=== PATIENT | male | born 1965 | race African-American/Black ===

== ENCOUNTER → 2019-09-12 | Emergency (ER) | payer MEDICAID ==
[~2019-09-12] VITALS: Ht 177.8 cm; Wt 104.3 kg
[~2019-09-12] MED LIST: AMIO200T33 PO; AMLO5TAB15 PO; ASPI-231 PO; ATOR40TA52 PO; CARV12.544 PO; HYDR50TA15 PO; LISI-646 PO; ONDA-144 PO
[2019-09-12 10:47] LABS: Basophils # (auto) 0.1 10 ^3/uL (0-0.2); Basophils % (auto) 0.9 % (0.0-2.0); Eosinophils # (auto) 0.1 10 ^3/uL (0-0.8); Eosinophils % (auto) 1.4 % (0.0-7.0); Hematocrit 33.4 % (41.0-53.0); Lymphocytes # (auto) 0.8 10 ^3/uL (0.4-5.4); Lymphocytes % (auto) 8.7 % (10.0-50.0); Mean Corpuscular Hemoglobin 29.2 pg (28.0-32.0); Mean Corpuscular Hgb Conc. 32.9 g/dL (32.0-36.0); Mean Corpuscular Volume 88.9 fL (80.0-100.0); Monocytes % (auto) 11.2 % (0.0-12.0); Neutrophils # (auto) 7.1 10 ^3/uL (1.6-8.6); Neutrophils % (auto) 77.8 % (37.0-80.0); Platelet Count (auto) 199 10^3/uL (140-450); Red Blood Cells 3.76 10^6/uL (4.5-5.90); Red Cell Distribution Width 15.5 % (11.8-14.3); White Blood Cell 9.2 10^3/uL (4.4-10.8)
[2019-09-12 11:04] LABS: Albumin 3.9 g/dL (3.4-5.0); Calcium 9.6 mg/dL (8.5-10.1); Potassium 4.2 mmol/L (3.5-5.1)
[2019-09-12 11:10] LABS: BUN/Creatinine Ratio 4.2; Bilirubin, Total 0.9 mg/dL (0.2-1.0); Total Protein 9.3 g/dL (6.4-8.2)
[2019-09-12 14:00] VITALS: BP 131/72
== END | disposition home or self-care (01) ==
LOC: EDUNIT# 09:59 → EDBD 10:12 → ER 10:12
DX: I13.2 Hypertensive heart and chronic kidney disease with heart failure and with stage 5 chronic kidney disease, or end stage renal disease (principal); E11.22 Type 2 diabetes mellitus with diabetic chronic kidney disease; N18.6 End stage renal disease; I50.9 Heart failure, unspecified; Z99.2 Dependence on renal dialysis; E78.5 Hyperlipidemia, unspecified; Z98.61 Coronary angioplasty status
CPT/HCPCS: 36415; 70450; 71045; 80053; 84484; 85025; 93005

== ENCOUNTER 2019-09-14 18:20 | Inpatient (IN) | payer MEDICAID ==
[~2019-09-14] VITALS: Ht 177.8 cm; Wt 100.6 kg
[~2019-09-14 18:20] MED LIST changes: -AMIO200T33 PO; -ONDA-144 PO
[2019-09-14] MEDS ORDERED: ASPirin 81 mg TAB PO ONE (19:45)
[2019-09-14 20:44] LABS: Basophils # (auto) 0.1 10 ^3/uL (0-0.2); Eosinophils # (auto) 0.2 10 ^3/uL (0-0.8); Eosinophils % (auto) 2.3 % (0.0-7.0); Hematocrit 31.5 % (41.0-53.0); Hemoglobin 10.8 g/dL (13.5-17.5); Lymphocytes # (auto) 1.3 10 ^3/uL (0.4-5.4); Mean Corpuscular Hemoglobin 30.3 pg (28.0-32.0); Mean Corpuscular Hgb Conc. 34.1 g/dL (32.0-36.0); Mean Corpuscular Volume 88.6 fL (80.0-100.0); Monocytes % (auto) 10.8 % (0.0-12.0); Neutrophils # (auto) 6.6 10 ^3/uL (1.6-8.6); Neutrophils % (auto) 71.9 % (37.0-80.0); Platelet Count (auto) 202 10^3/uL (140-450); Red Blood Cells 3.55 10^6/uL (4.5-5.90); Red Cell Distribution Width 15.5 % (11.8-14.3); White Blood Cell 9.2 10^3/uL (4.4-10.8)
[2019-09-14 21:00] LABS: INR 1.12 (0.9-1.15); Partial Thromboplastin Time 27.6 sec (23.64-32.05)
[2019-09-14 21:03] LABS: Potassium 5.1 mmol/L (3.5-5.1)
[2019-09-14 21:13] LABS: Albumin 3.9 g/dL (3.4-5.0); BUN/Creatinine Ratio 6.9; Bilirubin, Total 0.6 mg/dL (0.2-1.0); Calcium 9.6 mg/dL (8.5-10.1); Magnesium 2.3 mg/dL (1.6-2.6); Total Protein 8.9 g/dL (6.4-8.2)
[2019-09-14] MEDS ORDERED: ACETAMINOPHEN 325 MG TAB PO PRN (23:45)
[2019-09-14] MEDS ORDERED: HYDROcodone-ACET 5/325MG TAB PO PRN (23:45)
[2019-09-14] MEDS ORDERED: NITROGLYCERIN 0.4 MG SL TAB SL PRN (23:45)
[2019-09-14] MEDS ORDERED: DEXTROSE (50%) 50ML SYRG IV PRN (23:45)
[2019-09-14] MEDS ORDERED: ONDANSETRON HCL 4 MG/2 ML VIAL IV PRN (23:45)
[2019-09-14] MEDS ORDERED: DOCUSATE SOD 100 MG CAP PO PRN (23:45)
[2019-09-14] MEDS ORDERED: MORPHINE SULFATE 4 MG/ML SYR/VIAL IV PRN (23:45)
[2019-09-14] MEDS ORDERED: MORPHINE SULF INJ 2 MG/ML SYRINGE 1ML IV PRN (23:45)
[2019-09-15] VITALS (9 sets, daily range): BP systolic 114–142; BP diastolic 56–82
[2019-09-15] MEDS: ACCU-CHEK COMFORT CURVE STRIP VI SCH ×6 (00:10→20:00)
--- NOTE | 2019-09-15 02:30 | NUR ---
Patient admitted to room 284A. Alert and oriented x4. States he is homeless. Prescription meds at bedside. Will take to pharmacy when they open. Mrsa swab nares obtained and sending to lab. Patient was discharged a couple weeks ago. New port a cath to [facility]. Patients last dialysis was on Sunday. States he couldnt get a ride. IV to R AC patent and saline locked. No c/o pain. Having trouble with his left arm. Is unable to use it very much. Not sure why. Wearing Life vest . Snack given. Patient is very short with his answers to any questions. Wants to be left alone to rest. Went over POC. Oriented to room. Continuing to monitor.
[2019-09-15] MEDS: InsuLIN REG 1unit/0.01ml Soln (100units/ml) SC SCH ×6 (04:00→21:11)
[2019-09-15] MEDS ORDERED: ONDA-144 PO (04:54)
[2019-09-15] MEDS ORDERED: AMIO200T33 PO (04:54)
[2019-09-15] MEDS: hydrALAZINE HCL 25 MG TAB PO SCH ×3 (06:00→21:13)
[2019-09-15 06:08] LABS: Basophils # (auto) 0.1 10 ^3/uL (0-0.2); Basophils % (auto) 1.2 % (0.0-2.0); Eosinophils # (auto) 0.3 10 ^3/uL (0-0.8); Eosinophils % (auto) 3.5 % (0.0-7.0); Hematocrit 30.5 % (41.0-53.0); Hemoglobin 10.2 g/dL (13.5-17.5); Lymphocytes # (auto) 1.4 10 ^3/uL (0.4-5.4); Lymphocytes % (auto) 18.7 % (10.0-50.0); Mean Corpuscular Hemoglobin 29.9 pg (28.0-32.0); Mean Corpuscular Hgb Conc. 33.6 g/dL (32.0-36.0); Mean Corpuscular Volume 89.1 fL (80.0-100.0); Monocytes % (auto) 13.2 % (0.0-12.0); Neutrophils # (auto) 4.6 10 ^3/uL (1.6-8.6); Neutrophils % (auto) 63.4 % (37.0-80.0); Platelet Count (auto) 182 10^3/uL (140-450); Red Blood Cells 3.42 10^6/uL (4.5-5.90); Red Cell Distribution Width 15.2 % (11.8-14.3); White Blood Cell 7.3 10^3/uL (4.4-10.8)
[2019-09-15 08:29] LABS: BUN/Creatinine Ratio 7.7; Calcium 9.5 mg/dL (8.5-10.1); Potassium 4.8 mmol/L (3.5-5.1)
[2019-09-15] MEDS ORDERED: ADENOSINE 84 MG in GIVE UN-DILUTED 0 ML IV STA (09:00)
--- NOTE | 2019-09-15 09:29 | NUR ---
HOSPITAL LIST PAIGED TO REPORT CRITICAL VALUES OF BUN 88 AND CREATININE 11.4. WAITING FOR CALL BACK.
[2019-09-15] MEDS: CARVEDILOL 12.5 MG TAB PO SCH ×2 (09:45→21:12)
[2019-09-15] MEDS: ASPirin-EC 81 mg tab PO SCH (09:46)
[2019-09-15] MEDS: FUROSEMIDE 20 MG TAB PO SCH ×2 (09:47→21:11)
[2019-09-15] MEDS: ATORVASTATIN 20 MG TAB PO SCH (09:48)
[2019-09-15] MEDS: amLODIPine BESYLATE 5 MG TAB PO SCH (09:48)
[2019-09-15] MEDS: PANTOPRAZOLE 40 MG TAB PO SCH (09:49)
[2019-09-15] MEDS: LISINOPRIL 20 MG TAB PO SCH ×2 (09:49→21:12)
[2019-09-15] MEDS: HEPARIN SODIUM (PORCINE) 5000 UNITS/ML 1ML VIAL SC SCH ×2 (09:51→21:09)
--- NOTE | 2019-09-15 10:59 | NUR ---
CRITICAL VALUES REPORTED TO DR STORY. HE INFORMED ME TO MAKE SURE THAT [facility] WAS CONSULTED
--- NOTE | 2019-09-15 19:20 | NUR ---
NEPHRO AT BEDSIDE DR CUELLAR AT BEDSIDE, DISCUSSING POC WITH PT, STATES PT WILL BE SCHEDULED FOR DIALYSIS TX TOMORROW, [facility]
--- NOTE | 2019-09-15 19:30 | NUR ---
Opening Shift Note Assumed care of patient, awake and alert and oriented x4. No S/S of distress/SOB or pain reported at this time, currently on room air, left side weakness related to hx of CVA per patient, pt able to stand next to bed to use urinal, no assistance needed, fall precautions in place, non-slip socks on, Instructed on POC and to call for assist PRN, call light within reach, Nemesio dialysis cath noted to right upper chest wall, site benign, will continue to monitor for changes Q1hr and PRN.
--- NOTE | 2019-09-15 19:35 | NUR ---
ZOLL LIFE VEST ON PT BROUGHT FROM HOME, PT AXOX4, ABLE TO DEMONSTRATE AND VERBALIZE COMPLETE COMPREHENSION ON DEVICE, AWARE, CONT CARE
[2019-09-16] VITALS (8 sets, daily range): BP systolic 122–138; BP diastolic 66–79
[2019-09-16] MEDS: ACCU-CHEK COMFORT CURVE STRIP VI SCH ×6 (00:03→20:00)
[2019-09-16] MEDS: InsuLIN REG 1unit/0.01ml Soln (100units/ml) SC SCH ×6 (03:59→20:00)
[2019-09-16 05:43] LABS: Basophils # (auto) 0.1 10 ^3/uL (0-0.2); Basophils % (auto) 1.1 % (0.0-2.0); Eosinophils # (auto) 0.2 10 ^3/uL (0-0.8); Eosinophils % (auto) 2.9 % (0.0-7.0); Hematocrit 32.1 % (41.0-53.0); Hemoglobin 10.8 g/dL (13.5-17.5); Lymphocytes # (auto) 1.3 10 ^3/uL (0.4-5.4); Lymphocytes % (auto) 16.9 % (10.0-50.0); Mean Corpuscular Hemoglobin 29.7 pg (28.0-32.0); Mean Corpuscular Hgb Conc. 33.7 g/dL (32.0-36.0); Monocytes # (auto) 0.8 10 ^3/uL (0-1.3); Monocytes % (auto) 10.3 % (0.0-12.0); Neutrophils # (auto) 5.3 10 ^3/uL (1.6-8.6); Neutrophils % (auto) 68.8 % (37.0-80.0); Platelet Count (auto) 199 10^3/uL (140-450); Red Blood Cells 3.65 10^6/uL (4.5-5.90); Red Cell Distribution Width 15.6 % (11.8-14.3); White Blood Cell 7.7 10^3/uL (4.4-10.8)
[2019-09-16] MEDS: hydrALAZINE HCL 25 MG TAB PO SCH ×3 (05:58→22:00)
--- NOTE | 2019-09-16 05:59 | NUR ---
MEDICATION HELD SCHEDULED APRESOLINE HELD THIS AM. BLOOD PRESSURE WNL. HELD MED RELATED TO SCHEDULED DIALYSIS TODAY.
[2019-09-16 06:00] LABS: Calcium 9.3 mg/dL (8.5-10.1)
[2019-09-16 06:08] LABS: BUN/Creatinine Ratio 7.9
--- NOTE | 2019-09-16 06:11 | NUR ---
CRITICAL LAB RECEIVED REPORT FROM TORCH SOLDERER POTASSIUM 6.0, BUN 100, CREAT 12.6. PAGED PHOTOGRAPHIC DOUBLE DR. CUELLAR, SPOKE WITH ZEN AT [facility]. CURRENT TELE READING SINUS JUAN RAMON 55 BPM, WITH BBB AND OCCASIONAL PVC. PATIENT ASYMPTOTIC. WILL CONTINUE TO MONITOR AND AWAIT FOR PHYSICIAN TO CALL BACK.
[2019-09-16] MEDS ORDERED: SODIUM CHL 0.9% 1000 ML BAG XX ONE (07:00)
[2019-09-16] MEDS ORDERED: CALCIUM GLUC 4.65meq/50ml D5AE 50 ML IV ONE (09:30)
[2019-09-16] MEDS ORDERED: SODIUM ZIRCONIUM CYCL 10 GM PAK PO ONE (09:30)
[2019-09-16] MEDS: CARVEDILOL 12.5 MG TAB PO SCH ×2 (10:00→22:00)
[2019-09-16] MEDS: amLODIPine BESYLATE 5 MG TAB PO SCH (10:00)
[2019-09-16] MEDS: FUROSEMIDE 20 MG TAB PO SCH ×2 (10:00→22:00)
[2019-09-16] MEDS: ATORVASTATIN 20 MG TAB PO SCH (10:19)
[2019-09-16] MEDS: PANTOPRAZOLE 40 MG TAB PO SCH (10:19)
[2019-09-16] MEDS: ASPirin-EC 81 mg tab PO SCH (10:20)
[2019-09-16] MEDS: HEPARIN SODIUM (PORCINE) 5000 UNITS/ML 1ML VIAL SC SCH (10:20)
--- NOTE | 2019-09-16 15:57 | NUR ---
assessment Patient is a 54 year old male who is alert and oriented. Patients cognitive abilities are intact. Prior to admission patient lived home with a friend Aby and functioned independently. Patient informed me he is able to care for his own ADLs. Per patient he will not return home to his prior living arrangements post discharge. Patient has a rollator and life vest. Patient informed me he is trying to get to [place] on discharge. Patient is originally from [place] and moving to [facility]. Patient informed me he has no place to go on discharge if he cant get to [facility]. [facility] SW1 will evaluate for Homelessness. Other than that patient has no other discharge needs identified. I informed patient he has a right to speak to a geriatric social work professor regarding all care. I informed patient he has a right to participate in any and all discharge planning. Patient does not have a POA and advanced directive. I have offered patient information on POA and advanced directives. I informed the patient the advantages and benefits of having an Advanced Directive. Patient verbalized understanding and agreed to discharge plan. Addendum: 09/16/19 at 1605 by Dorene BENOIT Amended: Links added.
--- NOTE | 2019-09-16 16:14 | NUR ---
DR CUELLAR PAGED TO INFORM HIM THAT THE PATIENT IS SCHEDULED FOR A HEART CATH TOMORROW AND TO RECEIVE CLEARANCE FROM HIM TO CONTINUE. DR CUELLAR ANSWERED THE PAGE AND STATED THAT THE PATIENT WAS FINE TO RECEIVE THE HEART CATH FROM HIS STANDPOINT.
--- NOTE | 2019-09-16 19:35 | NUR ---
Opening Shift Note Assumed care of patient, awake and alert and oriented x4. No S/S of distress/SOB or pain reported at this time, currently on room air, left side weakness related to hx of CVA per patient, fall precautions in place, non-slip socks on, 2 side rails up, bed positioned low, bed alarm on and call light within reach, Instructed on POC and to call for assist PRN, Nemesio dialysis cath noted to right upper chest wall, site benign, zoll vest on, will continue to monitor for changes Q1hr and PRN.
[2019-09-16] MEDS ORDERED: EPOETIN ALFA 4,000 UNIT/ML VL SC ONE (21:00)
--- NOTE | 2019-09-16 21:03 | NUR ---
DIALYSIS NURSE AT BEDSIDE FOR TX HEPARIN [address]17 VIAL HANDED TO DIALYSIS NURSE FOR ADMINISTRATION ORDERED
--- NOTE | 2019-09-17 | NUR ---
DIALYSIS TX COMPLETE 1.9 LITERS REMOVED, VS 112/64, ON ROOM AIR, NO C/O CP, OR SOB, PT ASYMPTOMATIC, WILL RESUME WITH SCHEDULED MEDICATION TOLERATED, CONT CARE
--- NOTE | 2019-09-17 00:15 | NUR ---
ACTIVITY PT NOTED AMBULATING TO BATHROOM WITH ASSISTANCE OF FWW, PT TOLERATED ACTIVITY, NO S/O SOB, ASSISTED BACK TO BED, BED ALARM ACTIVATED AND CALL LIGHT WITHIN REACH, CONT CARE
[2019-09-17] MEDS: HEPARIN SODIUM (PORCINE) 5000 UNITS/ML 1ML VIAL SC SCH ×3 (01:29→22:17)
[2019-09-17] MEDS: InsuLIN REG 1unit/0.01ml Soln (100units/ml) SC SCH ×6 (04:00→20:36)
[2019-09-17] MEDS: ACCU-CHEK COMFORT CURVE STRIP VI SCH ×6 (04:25→20:25)
[2019-09-17] MEDS: hydrALAZINE HCL 25 MG TAB PO SCH ×3 (05:14→22:00)
[2019-09-17 05:18] VITALS: BP 124/80
[2019-09-17 05:25] LABS: Basophils # (auto) 0 10 ^3/uL (0-0.2); Basophils % (auto) 0.6 % (0.0-2.0); Eosinophils # (auto) 0.2 10 ^3/uL (0-0.8); Hematocrit 29.3 % (41.0-53.0); Hemoglobin 9.9 g/dL (13.5-17.5); Lymphocytes # (auto) 1.1 10 ^3/uL (0.4-5.4); Lymphocytes % (auto) 16.8 % (10.0-50.0); Mean Corpuscular Hgb Conc. 33.9 g/dL (32.0-36.0); Mean Corpuscular Volume 88.5 fL (80.0-100.0); Monocytes # (auto) 0.8 10 ^3/uL (0-1.3); Monocytes % (auto) 12.6 % (0.0-12.0); Neutrophils # (auto) 4.2 10 ^3/uL (1.6-8.6); Platelet Count (auto) 187 10^3/uL (140-450); Red Blood Cells 3.31 10^6/uL (4.5-5.90); Red Cell Distribution Width 15.4 % (11.8-14.3); White Blood Cell 6.3 10^3/uL (4.4-10.8)
[2019-09-17 05:36] LABS: INR 1.13 (0.9-1.15); Partial Thromboplastin Time 33.2 sec (23.64-32.05)
[2019-09-17 05:47] LABS: BUN/Creatinine Ratio 6.7; Calcium 8.7 mg/dL (8.5-10.1); Potassium 4.3 mmol/L (3.5-5.1)
[2019-09-17 08:00] VITALS: BP 125/78
[2019-09-17 08:13] VITALS: BP 125/78
[2019-09-17] MEDS: CARVEDILOL 12.5 MG TAB PO SCH ×2 (09:32→22:14)
[2019-09-17] MEDS: PANTOPRAZOLE 40 MG TAB PO SCH (09:33)
[2019-09-17] MEDS: ASPirin-EC 81 mg tab PO SCH (09:33)
[2019-09-17] MEDS: ATORVASTATIN 20 MG TAB PO SCH (09:33)
[2019-09-17] MEDS: FUROSEMIDE 20 MG TAB PO SCH ×2 (09:33→22:13)
[2019-09-17] MEDS: amLODIPine BESYLATE 5 MG TAB PO SCH (09:33)
[2019-09-17] MEDS ORDERED: IODIXANOL 320MG/ML 100ML BTL IV ONE ×2 (10:34→11:01)
[2019-09-17] MEDS ORDERED: LIDOCAINE 2%HCL (LOCAL ANESTH.) INJ 20ML MDV ONE (10:34)
[2019-09-17] MEDS: LISINOPRIL 20 MG TAB PO SCH ×2 (10:46→22:12)
[2019-09-17] MEDS ORDERED: fentaNYL CITRATE 100 MCG/2 ML VL ONE (10:52)
[2019-09-17] MEDS ORDERED: MIDAZOLAM HCL 1MG/1ML-2 ML VIAL ONE (10:52)
[2019-09-17] MEDS ORDERED: SODIUM CHL 0.9% 50 ML ONE (10:52)
[2019-09-17] MEDS ORDERED: ANGIOMAX 250 MG VIAL IV ONE (10:52)
[2019-09-17] MEDS ORDERED: VERAPAMIL 2.5MG/ML INJ 2ML VIAL IV ONE (10:54)
[2019-09-17] MEDS ORDERED: HEPARIN SODIUM (PORCINE) 5000 UNITS/ML 1ML VIAL ONE (10:54)
[2019-09-17] MEDS ORDERED: ASPirin 325 MG TAB ONE (12:36)
[2019-09-17] MEDS ORDERED: TICAGRELOR 90 MG TAB ONE (12:36)
--- NOTE | 2019-09-17 16:24 | NUR ---
Received Social Service Consult as Pt states he has been homeless for a couple of days. Pt has been staying with a friend but they had a falling out and he cannot go back.The pt states that he does have an income of around $800.00 a month but he is not sure. He does not know where the money is going. He lost his bank card, his ID and backpack. Pt states he wants to go to rehab as he had a stroke in the past. He walks with a walker and states he cannot walk alone. He has no family in the area. Pt states he wants to go to [facility]. Pt did sign the homeless waiver.
[2019-09-17 16:59] VITALS: BP 138/76
--- NOTE | 2019-09-17 19:30 | NUR ---
Opening Shift Note Assumed care of patient, awake and alert. No S/S of distress/SOB or pain. Instructed on POC and to call for assist PRN, will continue to monitor for changes Q1hr and PRN.
[2019-09-17 20:00] VITALS: BP 144/80
--- NOTE | 2019-09-17 21:00 | NUR ---
No bleeding, hematoma, or tenderness observed at site of incision of right wrist. VASC band removed and gauze with tegaderm placed. Will continue to monitor.
[2019-09-17 22:00] VITALS: BP 144/76
[2019-09-17] MEDS: TICAGRELOR 90 MG TAB PO SCH (22:13)
[2019-09-18 01:47] VITALS: BP 137/71
[2019-09-18] MEDS: InsuLIN REG 1unit/0.01ml Soln (100units/ml) SC SCH ×6 (04:00→20:06)
[2019-09-18] MEDS: ACCU-CHEK COMFORT CURVE STRIP VI SCH ×6 (04:18→20:05)
[2019-09-18 05:30] VITALS: BP 128/70
[2019-09-18] MEDS: hydrALAZINE HCL 25 MG TAB PO SCH ×3 (05:45→21:25)
[2019-09-18] MEDS ORDERED: SODIUM CHL 0.9% 1000 ML BAG XX ONE (07:00)
[2019-09-18 09:05] VITALS: BP 93/53
[2019-09-18] MEDS: FUROSEMIDE 20 MG TAB PO SCH ×2 (10:00→21:25)
[2019-09-18] MEDS: ATORVASTATIN 20 MG TAB PO SCH (11:00)
[2019-09-18] MEDS: ASPirin-EC 81 mg tab PO SCH (11:01)
[2019-09-18] MEDS: PANTOPRAZOLE 40 MG TAB PO SCH (11:01)
[2019-09-18] MEDS: amLODIPine BESYLATE 5 MG TAB PO SCH (11:02)
[2019-09-18] MEDS: LISINOPRIL 20 MG TAB PO SCH ×2 (11:05→21:25)
[2019-09-18] MEDS: HEPARIN SODIUM (PORCINE) 5000 UNITS/ML 1ML VIAL SC SCH ×2 (11:17→21:21)
[2019-09-18] MEDS: TICAGRELOR 90 MG TAB PO SCH ×2 (11:23→21:39)
[2019-09-18] MEDS: CARVEDILOL 12.5 MG TAB PO SCH ×2 (11:23→21:26)
[2019-09-18 13:00] VITALS: BP 125/63
--- NOTE | 2019-09-18 13:31 | NUR ---
NUTRITION ASSESSMENT NOTES Please refer to link notes of nutrition screen form filed under the intervention section of the plan of care for further details. Est. Energy Needs: 4919-4383 kcal (17-20 kcal/kg BW). Est. Protein Needs: 98-114 gms/day (1.2-1.4 gms/kg Adj.BW). Will continue to monitor pertinent labs and reassess nutrient need prn Addendum: 09/18/19 at [address] Amended: Links added.
[2019-09-18 17:15] VITALS: BP 124/43
--- NOTE | 2019-09-18 18:15 | NUR ---
PATIENT REMOVED IV ACCESS PATIENT REMOVED IV FROM RIGHT AC. PATIENT STATED HE DID NOT KNOW IT CAME OUT. CATHETER TIP NOT SEEN, CLAVE AND EXTENSION TUBING NOT SEEN. PATIENT SKIN WAS INTACT. NOT NOTED CATHETER TIP NOTED UNDER SKIN. ONCOMING RN ADVISED OF MISSING IV ACCESS. WILL CONTINUE TO MONITOR. PATIENT EDUCATION ON S/S OF INFECTION AND INFILTRATION, PATIENT VERBALIZED UNDERSTANDING.
[2019-09-18] MEDS ORDERED: EPOETIN ALFA 4,000 UNIT/ML VL SC ONE (21:00)
[2019-09-18 22:00] VITALS: BP 121/76
[2019-09-19] MEDS: ACCU-CHEK COMFORT CURVE STRIP VI SCH ×4 (00:29→12:00)
[2019-09-19] MEDS: InsuLIN REG 1unit/0.01ml Soln (100units/ml) SC SCH ×4 (03:34→12:00)
[2019-09-19 04:52] VITALS: BP 120/67
[2019-09-19] MEDS: hydrALAZINE HCL 25 MG TAB PO SCH ×2 (05:20→14:00)
--- NOTE | 2019-09-19 05:21 | NUR ---
Refused apresoline 100mg.p.o, said blood pressure of 120/67 is still low for him.
--- NOTE | 2019-09-19 07:28 | NUR ---
Care report given to Abigail Irving, patient is resting no distress.
[2019-09-19 09:00] VITALS: BP 135/78
[2019-09-19] MEDS: TICAGRELOR 90 MG TAB PO SCH (10:04)
[2019-09-19] MEDS: CARVEDILOL 12.5 MG TAB PO SCH (10:05)
[2019-09-19] MEDS: ASPirin-EC 81 mg tab PO SCH (10:05)
[2019-09-19] MEDS: FUROSEMIDE 20 MG TAB PO SCH (10:06)
[2019-09-19] MEDS: ATORVASTATIN 20 MG TAB PO SCH (10:06)
[2019-09-19] MEDS: amLODIPine BESYLATE 5 MG TAB PO SCH (10:06)
[2019-09-19] MEDS: PANTOPRAZOLE 40 MG TAB PO SCH (10:06)
[2019-09-19] MEDS: LISINOPRIL 20 MG TAB PO SCH (10:07)
[2019-09-19] MEDS: HEPARIN SODIUM (PORCINE) 5000 UNITS/ML 1ML VIAL SC SCH (10:08)
--- NOTE | 2019-09-19 11:20 | NUR ---
Spoke with Adult Protective Services Patient was previously in a homeless usp, but they are refusing to take him back due to his medical conditions. They told him he is too much work for them. He has family/friends he has spoken with but he stated that they are unable to take him because he is not on their lease. Adult [facility] has been trying to reach social media project manager regarding the patient's homeless status but have been unable to reach them at this time. They are concerned about patient being discharged and having no where to go. Patient has a SS consult regarding this situation as well. Waiting to hear from them.
[2019-09-19 13:00] VITALS: BP 101/57
--- NOTE | 2019-09-19 14:58 | NUR ---
Received Social Service referral to follow up on Homeless pt. Pt was angry as his aunt would not let him come to stay will her. Aunt finally hung up on pt. Pt stated that since he has a stroke two yrs ago he would like to return to rehab. groundskeeping maintenance worker informed pt that he did not qualify for Rehab. Asked pt if he had any other relatives he could call and he stated no. groundskeeping maintenance worker returned 30 minutes later and pt stated that his brother from [place] was on his way to pick him up and transport him to his home. Pt calmed down.
--- NOTE | 2019-09-19 15:09 | NUR ---
Telephoned Elva Cad Draftsman at [facility]. Elva was informed that pt was going to go home with his brother from [place]. Pt does not know the address but his name is Connor Gonsalez.
[2019-09-19 17:00] VITALS: BP 116/74
--- NOTE | 2019-09-19 17:15 | NUR ---
Discharge Went over discharge paperwork with patient. Removed IV. Removed telemetry and sent to ICU per hospital protocol. Gave prescriptions to patient. Retrieved patient medications from pharmacy and brought those to the room and gave them to the patient. He talked to his brother and is waiting for him to show up to take him home. [place] didn't know how far away he was and that he lives in [place].
--- NOTE | 2019-09-19 17:49 | NUR ---
Zoll vest connection problem Patient's Zoll vest keeps coming unplugged from the battery to the vest. This nurse tried plugging it back in but it won't stay in. The patient called the company and he was told they would send someone out to look at it. Waiting for them to arrive.
--- NOTE | 2019-09-19 18:37 | NUR ---
Zoll vest - this nurse called This nurse called the company to find out the ETA for when they will come and fix the Zoll vest. Patient is unable to leave until the vest is fixed. His brother has arrived to pick him up and take him home, but he is unable to leave at this time. They called the telemarketing sales representative that is coming to fix it, but they got no answer and stated the person might be on their way and unable to answer. He said they would probably call the patient first, but he did take the number for the hospital to keep us informed as well. Patient was informed of what is going on with the situation.
--- NOTE | 2019-09-19 19:19 | NUR ---
Opening Shift Note Assumed care of patient. Patient is awake, alert, orientation x 4. No S/S of distress/SOB or pain. Bed is in lowest position with side rails up x 2. Bed brakes are locked and call light is with in reach. HOB is 30 degrees. Family is at bedside. Patients claims "I'm ready to go home." Instructed on POC and to call for assist PRN, will continue to monitor for changes Q1hr and PRN.
--- NOTE | 2019-09-19 19:21 | NUR ---
Zoll vest [employer] was contacted for info on patient's Zoll life vest. Destiney from [employer] stated that a sales and marketing representative will contact the patient tomorrow morning september 20 2019 to set up an appt to visit patient in their home. Pt will be discharged with family.
--- NOTE | 2019-09-19 19:35 | NUR ---
Discharge instructions given as ordered. Encourage to follow up with PMD as instructed. All questions and concerns addressed. Patient verbalized understanding. Medication reconciliation form completed and copy given to patient. Home medications held in Pharmacy returned to patient. Patient already had IV removed and Telemetry unit returned to ICU. Patient taken to vehicle via wheelchair with all personal belongings, accompanied by staff and family member. No distress noted at time of departure.
== END 2019-09-19 19:15 | disposition home or self-care (01) | DRG 175 ==
LOC: ER 18:26 → TELE 18:27 → TELE-WESTW 09-15 01:46
PROVIDERS: ADMIT Hospitalist; ATTEND Internal Medicine Nephrology
PROC: 5A1D70Z Performance of Urinary Filtration, Intermittent, Less than 6 Hours Per Day (ICD-10-PCS; 2019-09-16)
PROC: 4A023N7 Measurement of Cardiac Sampling and Pressure, Left Heart, Percutaneous Approach (ICD-10-PCS; principal; 2019-09-17)
PROC: 027034Z Dilation of Coronary Artery, One Artery with Drug-eluting Intraluminal Device, Percutaneous Approach (ICD-10-PCS; 2019-09-17)
PROC: 4A023N7 Measurement of Cardiac Sampling and Pressure, Left Heart, Percutaneous Approach (ICD-10-PCS; 2019-09-17)
PROC: B211YZZ Fluoroscopy of Multiple Coronary Arteries using Other Contrast (ICD-10-PCS; 2019-09-17)
PROC: B215YZZ Fluoroscopy of Left Heart using Other Contrast (ICD-10-PCS; 2019-09-17)
PROC: 5A1D70Z Performance of Urinary Filtration, Intermittent, Less than 6 Hours Per Day (ICD-10-PCS; 2019-09-18)
DX: I25.119 Atherosclerotic heart disease of native coronary artery with unspecified angina pectoris (principal); I13.2 Hypertensive heart and chronic kidney disease with heart failure and with stage 5 chronic kidney disease, or end stage renal disease; E11.21 Type 2 diabetes mellitus with diabetic nephropathy; I24.9 Acute ischemic heart disease, unspecified; E87.5 Hyperkalemia; E11.22 Type 2 diabetes mellitus with diabetic chronic kidney disease; N18.6 End stage renal disease; D63.8 Anemia in other chronic diseases classified elsewhere; E66.9 Obesity, unspecified; I50.42 Chronic combined systolic (congestive) and diastolic (congestive) heart failure; I25.5 Ischemic cardiomyopathy; K27.9 Peptic ulcer, site unspecified, unspecified as acute or chronic, without hemorrhage or perforation; E78.00 Pure hypercholesterolemia, unspecified; F41.9 Anxiety disorder, unspecified; E78.5 Hyperlipidemia, unspecified; I44.0 Atrioventricular block, first degree; I44.7 Left bundle-branch block, unspecified; Z99.2 Dependence on renal dialysis; Z95.5 Presence of coronary angioplasty implant and graft; Z88.0 Allergy status to penicillin; Z79.82 Long term (current) use of aspirin; Z79.899 Other long term (current) drug therapy; Z83.3 Family history of diabetes mellitus; Z82.49 Family history of ischemic heart disease and other diseases of the circulatory system; Z80.9 Family history of malignant neoplasm, unspecified; Z68.31 Body mass index [BMI] 31.0-31.9, adult; Z86.73 Personal history of transient ischemic attack (TIA), and cerebral infarction without residual deficits
CPT/HCPCS: 36415; 71045; 78452; 80048; 80053; 80061; 82565; 82962; 83036; 83735; 83880; 84443; 84484; 85025; 85610; 85730; 87081; 90935; 93005; 93017; 97163; 99152; 99153; C1874; C1887; G0378; J0153; J0610; J1642; J1815; J2250; J2405; Q9967